=== PATIENT | male | born 1995 | race Caucasian/White ===

== ENCOUNTER → 2016-12-29 | Outpatient (CLI) | payer BC ==
--- NOTE | 2016-12-29 10:26 | DIAGNOSTIC IMAGING REPORT ---
LEFT KNEE 4 VIEWS CLINICAL HISTORY: Left knee pain. FINDINGS: AP, lateral, tunnel, and sunrise views of the left knee are obtained. No prior studies are available for comparison at the time of dictation. The skeletal structures are well mineralized. No fracture is seen. The joint spaces of the knee are preserved. A calcified fabella is incidentally noted. There is no evidence of osteochondral defect on the tunnel view. No joint effusion is identified. The overlying soft tissues are within normal limits. IMPRESSION: Unremarkable radiographic assessment of the left knee. Electronically signed by: Danny Caro M.D. 12/29/2016 10:24 AM Dictated Date/Time: 12/29/2016 10:23 AM
== END | disposition home or self-care (01) ==
LOC: C.RDSM 10:10
PROVIDERS: ATTEND Internal Medicine
DX: M25.562 Pain in left knee (principal)

== ENCOUNTER → 2017-01-14 | Outpatient (CLI) | payer BC ==
--- NOTE | 2017-01-14 15:34 | DIAGNOSTIC IMAGING REPORT ---
MRI OF THE LEFT CALF WITHOUT IV CONTRAST CLINICAL HISTORY: Left calf pain. History of chronic compartment syndrome. COMPARISON STUDY: No priors. TECHNIQUE: MRI of the left calf is performed utilizing various T1 and T2-weighted sequences in the axial, sagittal, and coronal planes. IV contrast was not administered for this examination. FINDINGS: Normal marrow signal intensity is preserved in the right tibia and fibula. There is no MRI evidence of fracture. No destructive bony lesion is seen. Normal flow voids are maintained within the calf vessels. There is intramuscular edema identified within the proximal body of the tibialis anterior muscle. This begins just below the knee and extends at least 10 cm in craniocaudal length. This is best seen on axial image #12 of 47. The remaining musculature of the calf is normal in bulk and signal intensity. This is deep to the marker at the indicated site of pain. There is a 1.4 cm lobulated T2 hyperintense and T1 hypointense structure identified on the anterior fibular cortex. This is best seen on axial image #12. This is located adjacent to the edematous tibialis anterior muscle, and is located between the bodies of the extensor digitorum longus and fibularis longus muscles. This likely represents a small ganglion cyst. The Achilles tendon is normal in morphology. Mild T2 edema is present around the distal Achilles tendon which is nonspecific but may represent mild paratenonitis. IMPRESSION: 1. There is nonspecific intramuscular edema identified within the proximal tibialis anterior muscle. This extends approximately 10 cm in length, and in the absence of trauma could be seen in the setting of chronic exertional compartment syndrome. Clinical correlation will be essential. 2. Suspect a small ganglion cyst along the proximal fibular shaft. 3. No bony abnormality is identified. 4. Question mild Achilles paratenonitis. Clinical correlation will be required. Dictated: 01/14/2017 2:49 PM Transcribed: 01/14/2017 3:34 PM [email or web address] Electronically signed by: Danny Caro M.D. 01/14/2017 3:36 PM Dictated Date/Time: 01/14/2017 2:49 PM
== END | disposition home or self-care (01) ==
LOC: C.MRI 13:19
PROVIDERS: ATTEND Physical Medicine & Rehabilitation Sports Medicine
DX: T79.A22D Traumatic compartment syndrome of left lower extremity, subsequent encounter (principal); X58.XXXD Exposure to other specified factors, subsequent encounter